=== PATIENT | male | born 1960 | race Caucasian/White ===

== ENCOUNTER 2016-03-17 19:41 | Emergency (ER) | payer BC, OTHER ==
[~2016-03-17] VITALS: Ht 182.9 cm; Wt 103.1 kg
[2016-03-17 19:52] VITALS: BP 122/77; TEMP 37; Ht 182.9 cm; Wt 103.1 kg
--- NOTE | 2016-03-17 20:31 | DIAGNOSTIC IMAGING REPORT ---
RIGHT ANKLE 3 VIEWS HISTORY: Right ankle pain. RIGHT, TWISTING INJURY Right COMPARISON: None. FINDINGS: There is no fracture or dislocation. Plantar and posterior calcaneal spurs. Lateral soft tissue swelling. No radiopaque foreign bodies. IMPRESSION: No fractures. Electronically signed by: Nakul Connolly M.D. 03/17/2016 8:30 PM Dictated Date/Time: 03/17/2016 8:28 PM
--- NOTE | 2016-03-17 20:32 | EMERGENCY ROOM VISIT NOTE ---
ED Visit Note First contact with patient: 20:02 CHIEF COMPLAINT: Right ankle injury one hour ago HISTORY OF PRESENT ILLNESS: Patient is a 55-year-old white male who sustained an injury to the right ankle and foot with a twisting, inversion motion about one hour ago. Complains of swelling and pain. The patient is able to bear weight on the foot but with pain. Constant pain, moderate to severe, worse with movement, weight bearing, and the dependent position. No knee pain. He took ibuprofen and applied ice. No prior history of injuries to this ankle. REVIEW OF SYSTEMS: Review of systems as per HPI. All other systems reviewed were negative. At least 6 systems reviewed.. PMH: Electronic medical records are reviewed and summarized as above/below. See Problem List. SOCIAL HISTORY: Patient lives at home. Employed. Former smoker. PHYSICAL EXAM: Vital Signs: Reviewed Nurse's notes. MENTAL STATUS: Alert, oriented, and cooperative. The right ankle is swollen and tender over the lateral aspect but the skin is intact and there is no ligamentous instability. No pain over the 5th metatarsal or fibular head. Lisfranc joint is negative. There is no deformity. The foot and toes are warm and well-perfused. Sensation to pain and light touch is intact. EMERGENCY DEPARTMENT COURSE: X-ray reveals no fracture, only the soft tissue swelling. A compression sleeve and gel splint were applied to the ankle under my direction and the position was satisfactory. Crutches were issued and patient was instructed on a non weight bearing gait. Differential diagnosis include foot verses ankle sprain/fracture, contusion, dislocation. Problem List Medical Problems: (1) Diabetes Status: Chronic Surgical Problems: (1) History of appendectomy Status: Resolved (2) Hx of cholecystectomy Status: Resolved Allergies Coded Allergies: No Known Allergies (Unverified , 03/17/16) Vital Signs Date Time Temp Pulse Resp B/P Pulse Ox O2 Delivery O2 Flow Rate FiO2 03/17/16 19:52 37.0 92 18 122/77 94 Room Air Departure Information Impression Primary Impression: Right ankle sprain Referrals No Doctor, Assigned (PCP) Patient Instructions My [facility] Additional Instructions Ibuprofen(Motrin, Advil) may be used for fever or pain. Use 600mg every six hours as needed. Take with food. Avoid using more than 2400mg in a 24 hour period. Do not use 2400mg per day for more than three consecutive days without physician direction. Prolonged inappropriate use can lead to stomach upset or ulcers. This medication can be taken if you need to drive, work, or perform activities which may be dangerous when taking narcotic pain medication. (AND/OR) Acetaminophen(Tylenol) may be used for fever or pain. Use 1000mg every six hours as needed. Avoid using more than 3000mg in a 24 hour period. This medication can be taken if you need to drive, work, or perform activities which may be dangerous when taking narcotic pain medication. Ice compresses for 20 minutes at a time four times daily for 2-3 days. Use the gel splint and crutches as instructed. Rest and elevate your injury. Continue current medications. Return to the ER immediately for any numbness, tingling, severe pain, extreme swelling in the extremity or as needed. Followup with your family doctor or orthopedic surgery if no improvement in 5-7 days.
[2016-03-17 20:42] VITALS: PULSE 87; O2SAT 94
== END 2016-03-17 20:43 | disposition home or self-care (01) ==
LOC: C.EDB 19:43 → C.EDD 20:43
DX: S93.401A Sprain of unspecified ligament of right ankle, initial encounter (principal); X50.1XXA Overexertion from prolonged static or awkward postures, initial encounter; E11.9 Type 2 diabetes mellitus without complications; Z90.49 Acquired absence of other specified parts of digestive tract; Z87.891 Personal history of nicotine dependence

== ENCOUNTER → 2016-11-27 | Outpatient (CLI) | payer BC, OTHER ==
[2016-11-28 06:28] LABS: ESTIMATED AVERAGE GLUCOSE 237 mg/dl; HA1C FLAG Normal (Normal)
== END | disposition home or self-care (01) ==
LOC: C.LAB1850 17:23
PROVIDERS: ATTEND Nurse Practitioner Family
DX: E11.9 Type 2 diabetes mellitus without complications (principal)